=== PATIENT | male | born 2000 | race Two or more races ===

== ENCOUNTER 2024-08-01 21:55 | Emergency (ER) | payer OTHER, BC ==
[~2024-08-01] VITALS: Ht 172.7 cm; Wt 106.4 kg
[2024-08-01 22:35] VITALS: BP 124/78; PULSE 71; RESP 18; TEMP 98.9; O2SAT 95
[2024-08-02] MEDS: TETANUS-DIPTH-ACEL PERTUSSIS 0.5ML SYR Tdap IM ONE (00:16)
[2024-08-02] MEDS ORDERED: IBUP-1456 PO (00:31)
== END 2024-08-02 01:13 | disposition home or self-care (01) ==
LOC: ER 21:55
DX: S62.337A Displaced fracture of neck of fifth metacarpal bone, left hand, initial encounter for closed fracture (principal); W22.8XXA Striking against or struck by other objects, initial encounter; Y93.89 Activity, other specified; Y92.89 Other specified places as the place of occurrence of the external cause; Y99.8 Other external cause status
CPT/HCPCS: 29125; 73130; 90471; 90715